=== PATIENT | male | born 1955 | race Two or more races ===

== ENCOUNTER 2017-04-09 07:06 | Day surgery (SDC) | payer OTHER ==
[2017-04-07 12:27] LABS: Urine WBC None Seen /hpf (0 - 3)
[2017-04-07 13:08] LABS: Albumin 4.1 g/dL (3.4-5.0); BUN/Creatinine Ratio 22.2; Calcium 9.2 mg/dL (8.5-10.1)
[2017-04-07 13:10] LABS: Bilirubin, Total 0.6 mg/dL (0.2-1.0); Total Protein 7.7 g/dL (6.4-8.2)
[2017-04-07 13:18] LABS: Basophils % (auto) 0.9 % (0.0-2.0); Eosinophils # (auto) 0.2 uL; Lymphocytes # (auto) 1.2 uL; Monocytes # (auto) 0.4 uL; Monocytes % (auto) 6.6 % (0.0-12.0)
[2017-04-07 13:19] LABS: Basophils # (auto) 0 uL; Eosinophils % (auto) 4.2 % (0.0-7.0); Hematocrit 52.5 % (41.0-53.0); Hemoglobin 18.2 g/dL (13.5-17.5); INR 0.95 (0.9-1.15); Lymphocytes % (auto) 22.9 % (10.0-50.0); Mean Corpuscular Hemoglobin 31.9 pg (28.0-32.0); Mean Corpuscular Hgb Conc. 34.6 g/dL (32.0-36.0); Mean Corpuscular Volume 92.3 fL (80.0-100.0); Neutrophils # (auto) 3.6 uL; Neutrophils % (auto) 65.4 % (37.0-80.0); Nucleated Red Blood Cells % 0.1 %; Partial Thromboplastin Time 29.4 sec (22.64-33.71); Platelet Count (auto) 212 10^3/uL (140-450); Prothrombin Time 10.4 sec (9.37-12.3); Red Blood Cells 5.69 10^6/uL (4.5-5.90); Red Cell Distribution Width 13.2 % (11.8-14.3); Urine Bacteria NONE SEEN /hpf (None Seen); Urine Blood Negative /uL (Negative); Urine Specific Gravity 1.017 (1.001-1.035); White Blood Cell 5.4 10^3/uL (4.4-10.8)
[~2017-04-09] VITALS: Ht 165.1 cm; Wt 68.9 kg
[~2017-04-09 07:06] MED LIST: FINA5TAB4 PO
[2017-04-09] MEDS ORDERED: ceFAZolin 1GM/50ML 50 ML IV ONE (07:31)
[2017-04-09] MEDS ORDERED: MIDAZOLAM HCL 1MG/1ML-2 ML VIAL ONE (08:03)
[2017-04-09] MEDS ORDERED: PROPOFOL 10 MG/ML 20 ML IV ONE (08:03)
[2017-04-09] MEDS ORDERED: LIDOCAINE HCL 100 MG/5ML (2%) SYRG INJ IV ONE (08:03)
[2017-04-09] MEDS ORDERED: BUPIVACAINE 0.25% INJ 50ML VIAL ONE (08:16)
[2017-04-09] MEDS ORDERED: LIDOCAINE 1% HCL (LOCAL ANESTH.) INJ 20ML MDV ONE (08:16)
[2017-04-09] MEDS ORDERED: LIDOCAINE HCL 2% TOP JELLY 5ML TOP ONE (08:40)
[2017-04-09] MEDS ORDERED: fentaNYL CITRATE 100 MCG/2 ML VL ONE (08:47)
[2017-04-09] MEDS ORDERED: hydrALAZINE HCL 20 MG/ML VL IV PRN (09:00)
[2017-04-09] MEDS ORDERED: ONDANSETRON HCL 4 MG/2 ML VIAL IV ONE (09:00)
[2017-04-09] MEDS ORDERED: METOCLOPRAMIDE HCL 5MG/ml INJ 2ml VIAL IV ONE (09:00)
[2017-04-09] MEDS ORDERED: NALOXONE HCL 0.4 MG/ML VIAL IV PRN (09:00)
[2017-04-09] MEDS ORDERED: KETOROLAC TROMETH 30 MG/ML 1ML VIAL ONE (09:03)
[2017-04-09] MEDS: MORPHINE SULFATE 4 MG/ML SYR/VIAL IV PRN ×3 (09:53→10:17)
[2017-04-09 11:03] VITALS: BP 157/99
== END 2017-04-09 11:21 | disposition home or self-care (01) ==
LOC: SUR 07:06
PROVIDERS: ATTEND Surgery
DX: K40.90 Unilateral inguinal hernia, without obstruction or gangrene, not specified as recurrent (principal); E66.9 Obesity, unspecified; Z68.25 Body mass index [BMI] 25.0-25.9, adult; M19.90 Unspecified osteoarthritis, unspecified site; N40.0 Benign prostatic hyperplasia without lower urinary tract symptoms
CPT/HCPCS: 36415; 49505; 80053; 81001; 85025; 85610; 85730; 88304; J0690; J1885; J2250; J2270; J2704; J3010; J3490; J2001

== ENCOUNTER 2017-04-11 18:18 | Emergency (ER) | payer OTHER ==
[~2017-04-11] VITALS: Ht 165.1 cm; Wt 68.0 kg
[2017-04-11 18:58] VITALS: BP 149/83
[2017-04-11] MEDS ORDERED: LIDOCAINE VISCOUS 2% 15ML UD PO ONE (20:30)
[2017-04-11] MEDS ORDERED: ALUM & MAG HYDROX-SIMETH LIQ(MAALOX) 30 ML PO ONE (20:30)
== END 2017-04-11 20:17 | disposition home or self-care (01) ==
LOC: ER 18:18
DX: K59.03 Drug induced constipation (principal); T40.2X5A Adverse effect of other opioids, initial encounter; Y92.89 Other specified places as the place of occurrence of the external cause
CPT/HCPCS: 74018

== ENCOUNTER 2017-05-07 17:11 | Emergency (ER) | payer OTHER ==
[~2017-05-07] VITALS: Ht 165.1 cm; Wt 70.3 kg
[2017-05-08 04:16] LABS: Basophils # (auto) 0.1 uL; Eosinophils # (auto) 0.3 uL; Eosinophils % (auto) 4.9 % (0.0-7.0); Hematocrit 46.3 % (41.0-53.0); Hemoglobin 16.2 g/dL (13.5-17.5); Lymphocytes # (auto) 1.5 uL; Lymphocytes % (auto) 27.7 % (10.0-50.0); Mean Corpuscular Hemoglobin 31.4 pg (28.0-32.0); Mean Corpuscular Volume 89.8 fL (80.0-100.0); Monocytes # (auto) 0.4 uL; Monocytes % (auto) 7.9 % (0.0-12.0); Neutrophils # (auto) 3.2 uL; Neutrophils % (auto) 58.5 % (37.0-80.0); Platelet Count (auto) 173 10^3/uL (140-450); Red Blood Cells 5.16 10^6/uL (4.5-5.90); Red Cell Distribution Width 13.2 % (11.8-14.3); White Blood Cell 5.5 10^3/uL (4.4-10.8)
[2017-05-08 04:50] LABS: Alanine Aminotransferase 24 U/L (16-61); Albumin 3.5 g/dL (3.4-5.0); Alkaline Phosphatase 63 U/L (45-117); Amylase 40 U/L (25-115); Anion Gap 9 (5-15); Aspartate Aminotransferase 15 U/L (15-37); BUN/Creatinine Ratio 18.8; Bilirubin, Total 0.6 mg/dL (0.2-1.0); Blood Urea Nitrogen 15 mg/dL (7-18); Calcium 8.4 mg/dL (8.5-10.1); Carbon Dioxide 29 mmol/L (21-32); Chloride 106 mmol/L (98-107); GFR African American 126 mL/min; GFR Non-African American 104 mL/min; Glucose 91 mg/dL (74-106); Lipase 196 U/L (73-393); Magnesium 2.5 mg/dL (1.6-2.6); Potassium 3.8 mmol/L (3.5-5.1); Sodium 144 mmol/L (136-145); Total Protein 6.7 g/dL (6.4-8.2)
[2017-05-08 05:54] VITALS: BP 119/64
== END 2017-05-08 05:53 | disposition home or self-care (01) ==
LOC: ER 17:18
DX: K57.30 Diverticulosis of large intestine without perforation or abscess without bleeding (principal); Z98.890 Other specified postprocedural states
CPT/HCPCS: 36415; 74176; 80053; 82150; 83690; 83735; 84484; 85025; 93005